=== PATIENT | female | born 1960 | race African-American/Black ===

== ENCOUNTER 2018-06-30 01:20 | Emergency (ER) | payer OTHER ==
[~2018-06-30] VITALS: Ht 165.1 cm; Wt 74.8 kg
[2018-06-30 01:30] VITALS: BP 156/80
[2018-06-30] MEDS ORDERED: PRED FORTE1 ML OP (02:27)
--- NOTE | 2018-06-30 02:28 | Emergency Room Report ---
History of Present Illness General Chief Complaint: Eye Problems Source: Patient Present Illness HPI This is a 57-year-old female who is nearly blind and also deaf. She presents with chief complaint of eye pressure on the right eye. History is extremely limited because she can't see and can here. She can talk. She complaining of pressure to the right eye. Onset unknown. I was able to talk with her consulting intern Dr. Matheus López. He said that she has end-stage glaucoma. 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 Her intraocular pressure is always high. She is currently taking Asopt. She just had a procedure done on her right eye to relief pressure. Patient still complaining of eye pressure. Allergies: Coded Allergies: No Known Allergies (Unverified , 06/30/18) Patient History Past Medical History: see triage record, old chart reviewed Past Surgical History: other Pertinent Family History: none Social History: Denies: smoking Now: No Immunizations: other Reviewed Nursing Documentation: PMH: Agreed; PSxH: Agreed Nursing Documentation-PMH Past Medical History: No Stated History Review of Systems Eye: Reports: eye pain; Denies: blurred vision ENT: Denies: ear pain, nose congestion, throat swelling Respiratory: Denies: cough, shortness of breath Cardiovascular: Denies: chest pain, palpitations Gastrointestinal: Denies: abdominal pain, diarrhea, nausea, vomiting Musculoskeletal: Denies: back pain, joint pain Skin: Denies: rash Neurological: Denies: headache, numbness Endocrine: Denies: increased thirst, increased urine Hematologic/Lymphatic: Denies: easy bruising All Other Systems: negative except mentioned in HPI Physical Exam Vital Signs Date Time Temp Pulse Resp B/P (MAP) Pulse Ox O2 Delivery O2 Flow Rate FiO2 06/30/18 01:25 97.6 78 16 156/80 98 Room Air 97.5 vitals with high blood pressure Sp02 EP Interpretation: reviewed, normal General Appearance: well appearing, no apparent distress, alert Head: normocephalic, atraumatic Eyes: right eye other - right eye w/o injection. pupil irreg due to surgery. no FB. IOP around 30 ENT: hearing grossly normal, normal pharynx Neck: full range of motion, supple, no meningismus Respiratory: chest non-tender, lungs clear, normal breath sounds Cardiovascular #1: regular rate, rhythm, no murmur Gastrointestinal: normal bowel sounds, non tender, no mass, no organomegaly, no bruit, non-distended Musculoskeletal: back normal, normal range of motion Neurologic: alert, grossly normal Psychiatric: mood/affect normal Skin: warm/dry Medical Decision Making Diagnostic Impression: Primary Impression: Glaucoma (increased eye pressure) Qualified Codes: H40.9 - Unspecified glaucoma ER Course Patient with end-stage glaucoma. No evidence of any trauma. No evidence of any infection. After discussing the case with Dr. López, we'll discharge home with prescription for Pred Forte. Last Vital Signs Date Time Temp Pulse Resp B/P (MAP) Pulse Ox O2 Delivery O2 Flow Rate FiO2 06/30/18 01:30 97.5 16 156/80 98 Room Air 97.5 06/30/18 01:25 78 Status: unchanged Disposition: HOME, SELF-CARE Condition: Stable Scripts Prednisolone Acetate (PRED FORTE) 1 Ml Drops.susp 1 ML OP QID, #10 ML Prov: CHINO JOHNSON M.D. 06/30/18 Referrals: [facility],REFERRING (PCP) Additional Instructions: Continue with your eye drops. Also use new eyedrop. Follow-up with eye doctor in a week. Return if worse. CHINO JOHNSON M.D. Jun 30, 2018 02:28
[2018-06-30 03:19] VITALS: BP 138/80
== END 2018-06-30 03:44 | disposition home or self-care (01) ==
LOC: EDBD 01:20 → EMR 01:38
DX: H40.9 Unspecified glaucoma (principal)
CPT/HCPCS: 99284